=== PATIENT | male | born 1970 | race Caucasian/White ===

== ENCOUNTER 2019-09-27 16:19 | Emergency (ER) | payer SELFPAY ==
[2019-09-27 16:56] VITALS: BP 142/86
--- NOTE | 2019-09-27 17:18 | UC ---
FLU HPI - HPI Summary HPI Summary: woke this am with sore throat, fever, chills, body aches. did not have flu shot and thinks he may have the flu took Tylenol for fever. loss appetite but no vomiting - History of Current Complaint Chief Complaint: UCGeneralIllness Stated Complaint: FLU LIKE SYMPTOMS Time Seen by Provider: 09/27/19 16:38 Hx Obtained From: Patient Onset/Duration: Sudden Onset Severity Currently: Moderate Severity Initially: Moderate Pain Intensity: 6 Associated Signs & Symptoms: Positive: Fever. Negative: Headache, Vomiting, Diarrhea - Allergy/Home Medications Allergies/Adverse Reactions: Allergies Allergy/AdvReac Type Severity Reaction Status Date / Time amoxicillin Allergy Swelling Verified 09/27/19 16:56 Home Medications: Home Medications Acetaminophen [Tylenol] 09/27/19 [History] PMH/Surg Hx/FS Hx/Imm Hx Previously Healthy: Yes - Surgical History Surgical History: None - Family History Known Family History: Positive: None - Social History Occupation: Employed Full-time Lives: With Family Alcohol Use: Daily Alcohol Amount: "a few every night" Substance Use Type: None Smoking Status (MU): Never Smoked Tobacco Review of Systems All Other Systems Reviewed And Are Negative: Yes Constitutional: Positive: Fever, Chills, Fatigue Skin: Positive: Negative Respiratory: Positive: Negative Cardiovascular: Positive: Negative Gastrointestinal: Positive: Negative Neurological: Positive: Negative Psychological: Positive: Negative Is Patient Immunocompromised?: No Physical Exam Triage Information Reviewed: Yes Appearance: Well-Appearing, No Pain Distress, Well-Nourished Vital Signs: Initial Vital Signs Temp 102.3 F 09/27/19 16:53 Pulse 110 09/27/19 16:53 Resp 18 09/27/19 16:53 BP 142/86 09/27/19 16:53 Pulse Ox 97 09/27/19 16:53 Vital Signs Reviewed: Yes Eye Exam: Normal Eyes: Positive: Conjunctiva Clear ENT: Negative: Pharynx normal, Nasal congestion Neck exam: Normal Respiratory Exam: Normal Respiratory: Positive: Lungs clear Cardiovascular Exam: Normal Cardiovascular: Positive: RRR Musculoskeletal Exam: Normal Neurological Exam: Normal Psychological Exam: Normal Skin Exam: Normal Skin: Negative: Rashes Flu Course/Dx - Differential Dx/Diagnosis Differential Diagnosis/HQI/PQRI: Bronchitis, Influenza, Upper Respiratory Infection Provider Diagnosis: Upper respiratory infection Discharge ED - Sign-Out/Discharge Documenting (check all that apply): Patient Departure All imaging exams completed and their final reports reviewed: No Studies - Discharge Plan Condition: Good Disposition: HOME Patient Education Materials: Upper Respiratory Infection (ED) Referrals: No Primary Care Phys,NOPCP [Primary Care Provider] - Additional Instructions: drink plenty of fluids and rest use over the counter cold medication for symptom relief use Tylenol and ibuprofen for fever as directed - Billing Disposition and Condition Condition: GOOD Disposition: Home
[2019-09-27 17:19] LABS: Influenza A Molecular NEGATIVE (Negative); Influenza B Molecular NEGATIVE (Negative)
[2019-09-27] MEDS ORDERED: Ibuprofen TAB* 400 MG PO ONE (17:30)
== END 2019-09-27 17:40 | disposition home or self-care (01) ==
LOC: UCEAST 16:19
DX: J06.9 Acute upper respiratory infection, unspecified (principal); Z88.0 Allergy status to penicillin
CPT/HCPCS: 99202; A9270-GY; G0463